=== PATIENT | male | born 1990 | race Two or more races ===

== ENCOUNTER 2018-09-04 16:11 | Emergency (ER) | payer SELFPAY ==
[~2018-09-04] VITALS: Ht 172.7 cm; Wt 65.8 kg
[2018-09-04 16:43] VITALS: BP 113/75
== END 2018-09-04 17:11 | disposition home or self-care (01) ==
LOC: ER 16:11
DX: L03.114 Cellulitis of left upper limb (principal); B36.0 Pityriasis versicolor; Z88.1 Allergy status to other antibiotic agents; Z60.2 Problems related to living alone; Z88.0 Allergy status to penicillin

== ENCOUNTER 2018-09-18 22:30 | Emergency (ER) ==
[~2018-09-18] VITALS: Ht 175.3 cm; Wt 65.8 kg
[2018-09-18 22:49] VITALS: BP 119/70
--- NOTE | 2018-09-19 00:10 | NUR ---
APPLIED DESHAWN BANDAGE TO L ELBOW
== END 2018-09-19 00:12 | disposition home or self-care (01) ==
LOC: ER 22:32
DX: M70.22 Olecranon bursitis, left elbow (principal); Q24.9 Congenital malformation of heart, unspecified; Q22.4 Congenital tricuspid stenosis; Z60.2 Problems related to living alone; Z88.0 Allergy status to penicillin; Z88.8 Allergy status to other drugs, medicaments and biological substances; Y93.89 Activity, other specified